=== PATIENT | male | born 1965 | race Caucasian/White ===

== ENCOUNTER 2021-08-29 20:25 | Emergency (ER) | payer MEDICARE ==
[~2021-08-29] VITALS: Ht 190.5 cm; Wt 147.1 kg
[2021-08-29 20:25] VITALS: BP 141/85
== END 2021-08-29 23:37 | disposition left against medical advice (07) ==
LOC: ER 20:25
DX: T18.8XXA Foreign body in other parts of alimentary tract, initial encounter (principal); Z53.21 Procedure and treatment not carried out due to patient leaving prior to being seen by health care provider; X58.XXXA Exposure to other specified factors, initial encounter; Y93.89 Activity, other specified; Y92.89 Other specified places as the place of occurrence of the external cause; Y99.8 Other external cause status